=== PATIENT | male | born 1955 | race Two or more races ===

== ENCOUNTER 2023-10-05 13:29 | Outpatient (AMB) | payer OTHER, SELFPAY ==
[2023-10-05 14:22] VITALS: BP 140/84; PULSE 83; RESP 13; O2SAT 97; BMI 32.0
--- NOTE | 2023-10-05 14:22 | MHC.PC.OV ---
Vital Signs 10/05/23 14:22 Height 5 ft 9 in Weight 217 lb BMI 32.0 BP 140/84 H Blood Pressure Location Rt brachial Position Sitting Respiration 13 Pulse 83 Pulse Source Pulse Oximeter Pulse Oximetry (%) 97 Oxygen Delivery Method Room Air Intake Visit Reasons: Establish Care not a transfer Intake Note: Patient is here to establish care, he states he had shingles and since having shingles his voice is gone acompanied by a dry persistent cough. Patient reports he has tingling down the left arm with no other symptoms. 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 Required: No Accompanied by: Self / Same As Patient Allergies No Known Allergies [No Known Allergies*] Allergy (Verified 10/05/23 14:28) Medication List - Last Reconciled 10/05/23 by Winsome Castaneda MD No Known Home Meds Tobacco use date assessed: 10/05/23 Fall risk assessment: No Falls in past year Last assessed Fall Risk: 10/05/23 Dental Screening Dental Screen Date: 10/05/23 Did you have a dental visit in the last 12 months?: No Did you have a dental problem in the last 6 months where you did not have access to dental care?: No Was dental information given to patient?: Patient declined HPI HPI Comments History of Present Illness Details 68 year old male with a past medical history of elevated blood pressure, GERD presenting to establish care Reports had shingles left neck, shoulder. Reports persistent tingly discomfort of the left arm. reports ever since he had shingles his voice has been hoarse. He denies dysphagia, odynophagia. History of tobacco use. Borderline blood pressure. Denies headaches, chest apin. Colonoscopy 2017-5 years due ROS see HPI PHYSICAL EXAM: GENERAL: Alert and oriented x 3. NAD EYES: EOMI. Anicteric. HENT: Moist mucous membranes. No scleral icterus. No cervical lymphadenopathy. LUNGS: Clear to auscultation bilaterally. CARDIOVASCULAR: Regular rate and rhythm. No murmur. No JVD. ABDOMEN: Soft, non-tender +bs EXTREMITIES: No edema. Non-tender. SKIN: No rashes or lesions. Warm. NEUROLOGIC: No focal neurological deficits. CN II-XII grossly intact PSYCHIATRIC: Cooperative. 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 1. Little interest or pleasure in doing things: not at all 2. Feeling down, depressed, or hopeless: not at all 3. Trouble falling or staying asleep, or sleeping too much: not at all 4. Feeling tired or having little energy: not at all 5. Poor appetite or overeating: not at all 6. Feeling bad about yourself - or that you are a failure or have let yourself or your family down: not at all 7. Trouble concentrating on things, such as reading the newspaper or watching television: not at all 8. Moving or speaking so slowly that other people could have noticed. Or the opposite - being so fidgety or restless that you have been moving around a lot more than usual: not at all 9. Thoughts that you would be better off or of hurting yourself in some way: not at all Total score: 0 Depression Screening Interpretation: Negative (Neg) Depression Screening Done: Yes 03266 - PHQ-9 Billing: Yes Source: Developed by Drs. Everardo Soliman, Brooke Kohler, Gil Armando and colleagues, with an educational geo from [employer]. Thrive Questionnaire Date Thrive assessed: 10/05/23 I am a: Patient What is your living situation today?: I have a steady place to live Within the past 12 months, did the food you bought not last and you didn't have the money to get more?: Never true Within the past 12 months, did you worry whether your food would run out before you got money to buy more?: Never true Do you have trouble paying for medicines?: No Do you have trouble getting transportation to medical appointments?: No Do you have trouble paying your heating and electricity bill?: No Do you have trouble taking care of your child, family member or friend?: No Do you have trouble with day-to-day activities such as bathing, preparing meals, shopping, managing finances, etc.?: No Are you currently unemployed and looking for a job?: No Are you interested in more education?: No Please select the resources that you would like help with: None Currently or been in a relationship where the following occur: No concerns reported THRIVE Score: 0 AUDIT C Alcohol Use Questionnaire (AUDIT-C) 1. How often do you have a drink containing alcohol?: Monthly or less 2. How many drinks containing alcohol do you have on a typical day when you are drinking?: 1 or 2 3. How often do you have six or more drinks on one occasion?: Never Total Score: 1 JULIAN-7 AMB Questionnaire JULIAN-7 Date JULIAN - 7 assessed: 10/05/23 Feeling nervous, anxious, or on edge: 0 = Not at all Not being able to stop or control worryin = Not at all Worrying too much about different things: 0 = Not at all Trouble relaxin = Not at all Being so restless that it is hard to sit still: 0 = Not at all Becoming easily annoyed or irritable: 0 = Not at all Feeling afraid as if something awful might happen: 0 = Not at all Total JULIAN-7 score (0-4 normal; 5-9 mild; 10-14 moderate; 15-21 severe): 0 Source: Developed by Drs. Everardo Soliman, Brooke Kohler, Gil Armando and colleagues, with an educational geo from [employer]. JULIAN-7 Assessment Billing JULIAN-7 Assessment Tool: JULIAN-7 Assessment 84637 Physical exam (Primary Care) Vital Signs: Last Vital Signs Pulse 83 10/05/23 14:22 Resp 13 10/05/23 14:22 BP 140/84 H 10/05/23 14:22 Pulse Ox 97 10/05/23 14:22 Oxygen Delivery Method Room Air 10/05/23 14:22 BMI result Body Mass Index 32.0 Tobacco/Smoking Status: Tobacco use Status Tobacco use date assessed 10/05/23 10/05/23 14:33 Patient Tobacco Use Status Never used Tobacco 10/05/23 14:33 e-Cigarette/Vaping Use Never Used 10/05/23 14:33 PHQ-9: PHQ-9 Score PHQ-9: Total score 0 10/11/23 11:00 Depression Screening Interpretation: Negative (Neg) Thrive Assessment: Date of Thrive Assessment Date Thrive assessed 10/05/23 10/05/23 14:33 Currently or been in a relationship where the following occur: No concerns reported Assessment and Plan Assessment & Plan (1) Hoarseness of voice: Code(s): R49.0 - Dysphonia Plan: referral to ENT for evaluation (2) Heartburn: Code(s): R12 - Heartburn Plan: Take OTC as needed (3) Neuropathy of left upper extremity: Code(s): G56.92 - Unspecified mononeuropathy of left upper limb Plan: More numbness, tingling than afshin pain. declines gabapentin (4) Elevated blood pressure reading: Code(s): R03.0 - Elevated blood-pressure reading, without diagnosis of hypertension Plan: increase physical activity, decrease salt. Monitor at home Orders: Orders Lipid Panel 10/05/23 R03.0 - Elevated blood-pressure reading, without diagnosis of hypertension, R12 - Heartburn, Z12.5 - Encounter for screening for malignant neoplasm of prostate, Z13.220 - Encounter for screening for lipoid disorders Complete Blood Count Auto Diff 10/05/23 R03.0 - Elevated blood-pressure reading, without diagnosis of hypertension, R12 - Heartburn, Z12.5 - Encounter for screening for malignant neoplasm of prostate, Z13.220 - Encounter for screening for lipoid disorders Comprehensive Met. Panel 10/05/23 R03.0 - Elevated blood-pressure reading, without diagnosis of hypertension, R12 - Heartburn, Z12.5 - Encounter for screening for malignant neoplasm of prostate, Z13.220 - Encounter for screening for lipoid disorders Prostate Specific Antigen 10/05/23 R03.0 - Elevated blood-pressure reading, without diagnosis of hypertension, R12 - Heartburn, Z12.5 - Encounter for screening for malignant neoplasm of prostate, Z13.220 - Encounter for screening for lipoid disorders Referrals Ear/Nose/Throat Referral G56.92 - Unspecified mononeuropathy of left upper limb, R12 - Heartburn, R49.0 - Dysphonia, R49.9 - Unspecified voice and resonance disorder Coding Level of Care Code New Pt Level 4 (47036) Diagnoses Hoarseness of voice R49.0 Heartburn R12 Neuropathy of left upper extremity G56.92 Elevated blood pressure reading R03.0 Additional Codes JULIAN-7 Assessment Billing - JULIAN-7 Assessment Tool: JULIAN-7 Assessment [id number] ([id number])
== END 2023-10-05 15:02 | disposition home or self-care (01) ==
PROVIDERS: Visit Provider Internal Medicine
DX: R49.0 Dysphonia (principal); R12 Heartburn; G56.92 Unspecified mononeuropathy of left upper limb; R03.0 Elevated blood-pressure reading, without diagnosis of hypertension
CPT/HCPCS: 99204

== ENCOUNTER 2024-01-08 10:28 | Outpatient (AMB) | payer OTHER, SELFPAY ==
--- NOTE | 2024-01-08 10:35 | MHC.PC.OV ---
Vital Signs 01/08/24 10:41 Height 5 ft 9 in Weight 218 lb 6 oz BMI 32.2 BP 138/88 Blood Pressure Location Rt brachial Position Sitting Pulse 89 Pulse Source Pulse Oximeter Pulse Oximetry (%) 98 Oxygen Delivery Method Room Air Intake Visit Reasons: annual Intake Note: Physical. 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 Reports persistent tingly discomfort of the left arm. He does reports frequent posterior neck pain. The arm feels limp and weak intermittently Reports ever since he had shingles his voice has been hoarse. He denies dysphagia, odynophagia. History of tobacco use. He was referred to ENT. He has not gotten an appointment scheduled yet Reports ED. sometimes nocturia. Would like to trial viagra and see urology Borderline blood pressure. Denies headaches, chest apin. Colonoscopy 2017-5 years due. Order placed ROS see HPI PHYSICAL EXAM: GENERAL: Alert and oriented x 3. NAD EYES: EOMI. Anicteric. HENT: Moist mucous membranes. No scleral icterus. No cervical lymphadenopathy. LUNGS: Clear to auscultation bilaterally. CARDIOVASCULAR: Regular rate and rhythm. No murmur. No JVD. : Normal penis. No appreciable testicular masses ABDOMEN: Soft, non-tender +bs EXTREMITIES: No edema. Non-tender. SKIN: No rashes or lesions. Warm. NEUROLOGIC: No focal neurological deficits. CN II-XII grossly intact PSYCHIATRIC: Cooperative. 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 Everardo Soliman, Brooke Kohler, Gil Armando and colleagues, with an educational geo from [employer] Physical exam (Primary Care) Vital Signs: Last Vital Signs Pulse 89 01/08/24 10:41 BP 138/88 01/08/24 10:41 Pulse Ox 98 01/08/24 10:41 Oxygen Delivery Method Room Air 01/08/24 10:41 BMI result Body Mass Index 32.2 Tobacco/Smoking Status: Tobacco use Status Tobacco use date assessed 10/05/23 01/08/24 10:36 Patient Tobacco Use Status Never used Tobacco 01/08/24 10:36 e-Cigarette/Vaping Use Never Used 01/08/24 10:36 Thrive Assessment: Date of Thrive Assessment Date Thrive assessed 10/05/23 01/08/24 10:36 Coding Level of Care Code Est Pt Prev Care >65y(68038) Diagnoses Physical exam Z00.00 Hoarseness of voice R49.0 Neuropathy of left upper extremity G56.92 Erectile dysfunction, unspecified erectile dysfunction type N52.9 Erectile dysfunction type: unspecified Assessment & Plan Assessment & Plan (1) Physical exam: Code(s): Z00.00 - Encounter for general adult medical examination without abnormal findings Category: Medical Plan: Preventive measures for age and sex discussed. colonoscopy ordered. (2) Hoarseness of voice: Code(s): R49.0 - Dysphonia Category: Medical Plan: Given number to call ENT (3) Neuropathy of left upper extremity: Code(s): G56.92 - Unspecified mononeuropathy of left upper limb Category: Medical Plan: xray ordered. will likely refer to spine (4) Erectile dysfunction: Code(s): N52.9 - Male erectile dysfunction, unspecified Category: Medical Qualifiers: Erectile dysfunction type: unspecified Qualified Code(s): N52.9 - Male erectile dysfunction, unspecified Plan: referral to urology placed Viagra sent Orders: Orders XR cervical spine 4V Today G56.92 - Unspecified mononeuropathy of left upper limb Referrals Urology Referral N52.9 - Male erectile dysfunction, unspecified Open Access Screening Colonoscopy Referral Z12.11 - Encounter for screening for malignant neoplasm of colon, Z12.12 - Encounter for screening for malignant neoplasm of rectum Medications: New gabapentin 300 mg PO BID 180 caps 3RF sildenafil administer 30 minutes to 4 hours before activity 100 mg PO DAILY PRN 30 tabs 3RF sexual activity
[2024-01-08 10:41] VITALS: BP 138/88; PULSE 89; O2SAT 98; BMI 32.2
== END 2024-01-08 11:42 | disposition home or self-care (01) ==
PROVIDERS: Visit Provider Internal Medicine
DX: Z00.00 Encounter for general adult medical examination without abnormal findings (principal); R49.0 Dysphonia; G56.92 Unspecified mononeuropathy of left upper limb; N52.9 Male erectile dysfunction, unspecified

== ENCOUNTER 2024-01-08 10:28 | Outpatient (REF) | payer OTHER, SELFPAY ==
--- NOTE | ~2024-01-08 | XR_ITS ---
EXAMINATION: XR CERVICAL SPINE 7 VIEWS CLINICAL INFORMATION: Unspecified mononeuropathy of left upper limb G56.92. COMPARISON: None available. TECHNIQUE: 7 views of the cervical spine, inclusive of flexion and extension views, were obtained. FINDINGS: Straightening of the normal cervical lordosis, which may be positional or related to muscular spasm. No acute fracture or subluxation. Normal atlantoaxial alignment. No loss of vertebral body height. Prominent loss of intervertebral disc height with anterior endplate osteophytes at C3-C4 and C4-C5. More moderate generative disc disease at C5-C7. Multilevel bilateral facet arthropathy. Multilevel bilateral neural foraminal stenosis. No concerning lytic or blastic osseous lesion. Unremarkable prevertebral soft tissues. XR/XR cervical spine 4V IMPRESSION: 1. Straightening of the normal cervical lordosis, which may be positional or related to muscular spasm. 2. Prominent degenerative disc disease at C3-C4 and C4-C5. More moderate degenerative disc disease at C5-C7. Multilevel bilateral facet arthropathy. Multilevel bilateral neural foraminal stenosis. Electronically signed by: Hilario Dawson MD 03/02/2024 01:02 PM OJ
== END 2024-01-08 10:29 | disposition home or self-care (01) ==
LOC: HO.XRAY 10:28
PROVIDERS: PCP Internal Medicine; Visit Provider Internal Medicine
DX: G56.92 Unspecified mononeuropathy of left upper limb (principal); R49.0 Dysphonia; N52.9 Male erectile dysfunction, unspecified; Z00.00 Encounter for general adult medical examination without abnormal findings
CPT/HCPCS: 72050

== ENCOUNTER 2025-01-10 10:13 | Outpatient (AMB) | payer OTHER, SELFPAY ==
--- NOTE | 2025-01-10 10:17 | A.OFFPC_ITS ---
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 Reports persistent tingly discomfort of the left arm. He does reports frequent posterior neck pain. The arm feels limp and weak intermittently Reports ever since he had shingles his voice has been hoarse. He denies dysphagia, odynophagia. History of tobacco use. He was referred to ENT. He has not gotten an appointment scheduled yet Reports ED. sometimes nocturia. Would like to trial viagra and see urology Borderline blood pressure. Denies headaches, chest apin. Colonoscopy 2017-5 years due. Order placed ROS see HPI PHYSICAL EXAM: GENERAL: Alert and oriented x 3. NAD EYES: EOMI. Anicteric. HENT: Moist mucous membranes. No scleral icterus. No cervical lymphadenopathy. LUNGS: Clear to auscultation bilaterally. CARDIOVASCULAR: Regular rate and rhythm. No murmur. No JVD. : Normal penis. No appreciable testicular masses ABDOMEN: Soft, non-tender +bs EXTREMITIES: No edema. Non-tender. SKIN: No rashes or lesions. Warm. NEUROLOGIC: No focal neurological deficits. CN II-XII grossly intact PSYCHIATRIC: Cooperative. Appropriate mood and affect [facility] Medical History Shingles Surgical History No pertinent past surgical history Family History Maternal Grandmother Stomach cancer Sister Breast cancer Social History (Updated 01/10/25 @ 10:21 by Perez Esparza MA) Household Members: Family Housing: House 75 years or older and lives alone: No Alcohol intake: current Alcohol intake frequency: holidays/special occasions only Alcohol type: beer Patient Tobacco Use Status: Never used Tobacco e-Cigarette/Vaping Use: Never Used Use of substances other than those prescribed or required for medical reasons: No service: No Current occupational status: employed 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 1. Little interest or pleasure in doing things: not at all 2. Feeling down, depressed, or hopeless: not at all 3. Trouble falling or staying asleep, or sleeping too much: nearly every day 4. Feeling tired or having little energy: several days 5. Poor appetite or overeating: not at all 6. Feeling bad about yourself - or that you are a failure or have let yourself or your family down: not at all 7. Trouble concentrating on things, such as reading the newspaper or watching television: not at all 8. Moving or speaking so slowly that other people could have noticed. Or the opposite - being so fidgety or restless that you have been moving around a lot more than usual: not at all 9. Thoughts that you would be better off or of hurting yourself in some way: not at all Total score: 4 Depression Screening Interpretation: Positive Depression Screening Done: Yes 30514 - PHQ-9 Billing: Yes Source: Developed by Drs. Everardo Soliman, Brooke Kohler, Gil Armando and colleagues, with an educational geo from [employer]. Thrive Questionnaire Date Thrive assessed: 10/05/23 I am a: Patient What is your living situation today?: I have a steady place to live Within the past 12 months, did the food you bought not last and you didn't have the money to get more?: Never true Within the past 12 months, did you worry whether your food would run out before you got money to buy more?: Never true Do you have trouble paying for medicines?: Yes Do you have trouble getting transportation to medical appointments?: No Do you have trouble paying your heating and electricity bill?: Yes Do you have trouble taking care of your child, family member or friend?: No Do you have trouble with day-to-day activities such as bathing, preparing meals, shopping, managing finances, etc.?: No Are you currently unemployed and looking for a job?: No Are you interested in more education?: Yes Please select the resources that you would like help with: Education Currently or been in a relationship where the following occur: No concerns reported THRIVE Score: 1 AUDIT C Alcohol Use Questionnaire (AUDIT-C) 1. How often do you have a drink containing alcohol?: 2-4 times a month 2. How many drinks containing alcohol do you have on a typical day when you are drinking?: 1 or 2 3. How often do you have six or more drinks on one occasion?: Never Total Score: 2 JULIAN-7 AMB Questionnaire JULIAN-7 Date JULIAN - 7 assessed: 01/10/25 Feeling nervous, anxious, or on edge: 0 = Not at all Not being able to stop or control worryin = Not at all Worrying too much about different things: 0 = Not at all Trouble relaxin = Not at all Being so restless that it is hard to sit still: 0 = Not at all Becoming easily annoyed or irritable: 0 = Not at all Feeling afraid as if something awful might happen: 0 = Not at all Total JULIAN-7 score (0-4 normal; 5-9 mild; 10-14 moderate; 15-21 severe): 0 Source: Developed by Drs. Everardo Soliman, Brooke Kohler, Gil Armando and colleagues, with an educational geo from [employer]. JULIAN-7 Assessment Billing JULIAN-7 Assessment Tool: JULIAN-7 Assessment 62253 Physical exam (Primary Care) Vital Signs: Last Vital Signs Temp 98 F 01/10/25 10:22 Pulse 94 01/10/25 10:22 Resp 18 01/10/25 10:22 BP 128/84 01/10/25 10:25 Pulse Ox 96 01/10/25 10:22 Oxygen Delivery Method Room Air 01/10/25 10:22 Tobacco/Smoking Status: Tobacco use Status Tobacco use date assessed 01/10/25 01/10/25 10:26 Patient Tobacco Use Status Never used Tobacco 01/10/25 10:21 e-Cigarette/Vaping Use Never Used 01/10/25 10:21 PHQ-9: PHQ-9 Score PHQ-9: Total score 4 01/10/25 10:35 Depression Screening Interpretation: Positive Thrive Assessment: Date of Thrive Assessment Date Thrive assessed 10/05/23 01/10/25 10:18 Currently or been in a relationship where the following occur: No concerns reported Office Procedures Flu Questionnaire Does the patient have a severe egg allergy?: No Does the patient have severe life threatening allergies?: No Does the patient have a fever or illness today?: No Has the patient ever had Guillain-[place] Syndrome?: No Has the patient ever had any past reaction to a flu shot?: No Immunizations Fluarix [id number] (PF) 45 mcg (15 mcg x 3)/0.5 mL IM syringe Performing Provider: Winsome Castaneda MD Performing Location: [facility] [place] Administered by: Prisca Gomez CMA on 01/10/25 10:54 Dose Route Admin Location Dispensed Lot Number Expiration Date [place] Production Control Coordinating Clerk 0.5 mL IM Right Deltoid 0.5 mL [id number] 09/19/25 66319-045-41 [employer] VIS Given Date VIS Provided VIS Publication Date 01/10/25 Single Vaccine 24 Eligibility Eligibility Date Funding Source Not VFC Eligible 01/10/25 Private Boostrix Tdap 2.5 Lf unit-8 mcg-5 Lf/0.5 mL intramuscular syringe Performing Provider: Winsome Castaneda MD Performing Location: [facility] Medicine Administered by: Prisca Gomez CMA on 01/10/25 10:54 Dose Route Admin Location Dispensed Lot Number Expiration Date [facility] Production Control Coordinating Clerk 0.5 mL IM Left Deltoid 0.5 mL [id number] 02/17/27 [id number] [employer] Total Dispensed Waste 0.5 mL 0 % VIS Given Date VIS Provided VIS Publication Date 01/10/25 Single Vaccine 20 Eligibility Eligibility Date Funding Source Not VFC Eligible 01/10/25 Private Coding Additional Codes JULIAN-7 Assessment Billing - JULIAN-7 Assessment Tool: JULIAN-7 Assessment 78175 ([id number]) PHQ-9 - 16043 - PHQ-9 Billing: Yes ([id number]) Assessment & Plan Assessment & Plan Orders: Orders TDaP Immunization Today Z23 - Encounter for immunization Influenza [id number] Immunization Today Z23 - Encounter for immunization Referrals Gastroenterology Referral Z12.11 - Encounter for screening for malignant neoplasm of colon General Surgery Referral K64.9 - Unspecified hemorrhoids Ear/Nose/Throat Referral R49.0 - Dysphonia
[2025-01-10 10:22] VITALS: BP 130/92; PULSE 94; RESP 18; TEMP 36.6; O2SAT 96
[2025-01-10 10:25] VITALS: BP 128/84
== END 2025-01-10 11:01 | disposition home or self-care (01) ==
PROVIDERS: PCP Internal Medicine; Visit Provider Internal Medicine
DX: Z23 Encounter for immunization (principal)

== ENCOUNTER → 2025-01-10 10:13 | Outpatient (BNVA) | payer OTHER, SELFPAY | PROVIDERS: Visit Provider Internal Medicine | DX: R49.0 Dysphonia (principal); Z23 Encounter for immunization; K64.9 Unspecified hemorrhoids; Z13.31 Encounter for screening for depression; Z13.39 Encounter for screening examination for other mental health and behavioral disorders | CPT/HCPCS: 90471; 90472; 90656; 90715; 96127 ==

== ENCOUNTER 2025-02-21 10:40 | Outpatient (REF) | payer OTHER, SELFPAY ==
--- NOTE | ~2025-02-21 | CT_ITS ---
EXAMINATION: CT SOFT TISSUE NECK WITH CONTRAST CLINICAL INFORMATION: R13.10. Dysphagia, unspecified. COMPARISON: None available. TECHNIQUE: Following the intravenous administration of 60 mL of Omnipaque 350 intravenous contrast, helical imaging was performed in the axial plane with generation of coronal and sagittal reformatted images. This CT examination was performed using dose optimization techniques as appropriate, variously including the following: *Automated exposure control *Adjustment of mA and/or kV according to patient size (this includes techniques or standardized protocols for targeted exams where dose is matched to indication/reason for exam; i.e. extremities or head) *Use of iterative reconstruction technique DLP: 432 mGy-cm FINDINGS: Limited by patient's motion artifact, being hardening artifact from dental work and poor IV contrast enhancement. There is soft tissue fullness in the nasopharynx abutting the soft palate resulting in narrowing/absent upper airway. Oropharynx, retropharynx, hypopharynx and larynx demonstrated no gross masses or fluid collections. There is a gas-filled structure in the right paraglottic compartment. Managing Cognitive Engineer spaces, parapharyngeal and carotid compartments demonstrated no gross masses or fluid collections. Salivary glands demonstrated no sialolithiasis or gross masses. The vessels are patent. Calcified plaques in the right carotid bulb and proximal right ICA. Retropharyngeal trajectory of the right ICA. The thyroid gland is not enlarged. No gross dominant nodules. Nonspecific prominent cervical lymph nodes. The thoracic aortic arch is normal. No acute airspace disease in the upper lung lobes. Multilevel cervical spondylosis C3 C7 pronounced at C3-4, C4-5 and to a lesser extent C5-6 resulting in kyphotic deformity apex at C3-4. There is poor dentition with a periapical hypodensity in the right middle incisive, maxilla. CT/CT soft tissue neck w IV con IMPRESSION: Soft tissue fullness, nasopharynx obstructing upper airway. Recommend direct inspection. Laryngocele, right paraglottic. Multilevel cervical spondylosis C3 C7. Probable periapical abscess, right middle maxillary incisive Electronically signed by: Gordon Burton MD 02/21/2025 11:50 AM [facility] [place]
[2025-02-21] MEDS: iohexoL 350 MG/ML 100 ML INFUS..BTL IV (11:18)
--- OUTSIDE RECORDS SUMMARY | 2025-02-21 12:27 | XMS_ITS | Clinical Summary ---
Author Organization [facility] Address [address] [place] [id number] Care Team Providers Care Frontload Driver Name Role Phone Unavailable Primary Care Provider Unavailabl e Encounters Date Type Department Care Team Description 01/27/2025 8:00 AM EST Office Visit [facility] [address] [phone] Fer Terry MD Dysphonia (Primary Dx); Unilateral partial vocal fold paralysis; Larynx neoplasm malignant (HCC) from Last 3 Months Social History Tobacco Use Types Packs/Day Years Used Date Smoking Tobacco: Never Assessed Sex and Gender Information Value Date Recorded Sex Assigned at Male 01/23/2025 1:57 PM EST Legal Sex Male 10:09 AM EDT Gender Identity Male 01/23/2025 1:57 PM EST Sexual Orientation Heterosexual (straight) 01/23 1:57 PM EST Plan of Treatment Health Maintenance Due Date Last Done Comments Advance Care Planning 1955 Hepatitis C Virus Screening 1955 DTaP/Tdap/Td Vaccines (1 - Tdap) 1973 Pneumococcal Vaccines 50+ (1 of 2 - PCV) 1973 Zoster (Shingles) Vaccine (1 of 2) 1973 Colonoscopy 09/09/1999 COVID-19 Vaccine (3 - Modern a risk series) 08/22/2021 07/25/2021, 04/28/2021, 03/31/2021 Influenza Vaccine 10/21/2024 RSV Vaccine 50 years and older and Patients (1 - 1-dose 75+ series) 2029 Hepatitis B Vaccines Aged Out No long er eligible based on patient's age to complete this topic Procedures Procedure Name Priority Date/Time Associated Diagnosis Comments AMB REFERRAL TO ENT Routine 01/16/2025 1:12 PM EDT from Last 3 Months Results * Amb Referral to ENT (01/16/2025 1:12 PM EDT) us External Provider OUTPATIENT REFERRAL ORDERAB LES Final Result from Last 3 Months Insurance DIVERS[employer]IED GROUP
--- OUTSIDE RECORDS SUMMARY | 2025-02-21 12:27 | XMS_ITS ---
Author Name [facility] Organization Unknown Problems Problem Status Onset Date Problem Type Date of Resoluti on Source Dysphonia active EncounterDiagnosisAct HHCCT Larynx neoplasm malignant (HCC) active EncounterDiagnosisAct C CT Unilateral partial vocal fold paralysis active EncounterDiagnosisAct [facility]CT Encounters Encounter Type Encounter Reason Primary Diagnosis Location Date Ambulatory Dysphonia Dysphonia [facility] 01/27/2025 Care Team Organization Name Specialty Phone Email Start Date End [facility] 01/27/2025 [facility] 01/20/2025
[2025-02-21 12:33] LABS: Creatinine POC 1.1 mg/dL (0.5-1.4); GFR POC > 60
== END 2025-02-21 10:41 | disposition home or self-care (01) ==
LOC: HO.CT 10:40
PROVIDERS: Visit Provider Internal Medicine
DX: R49.0 Dysphonia (principal); R13.10 Dysphagia, unspecified; J38.01 Paralysis of vocal cords and larynx, unilateral; C32.9 Malignant neoplasm of larynx, unspecified
CPT/HCPCS: 70491; 82565; Q9967

== ENCOUNTER → 2025-02-21 10:46 | Outpatient (BNV) | payer OTHER, SELFPAY | PROVIDERS: Visit Provider Radiology Diagnostic Radiology | DX: M47.812 Spondylosis without myelopathy or radiculopathy, cervical region (principal) | CPT/HCPCS: 70491 ==

== ENCOUNTER 2025-03-06 09:51 | Outpatient (AMB) | payer OTHER, SELFPAY ==
--- NOTE | 2025-03-06 10:02 | A.OFFVIS_ITS ---
Vital Signs 03/06/25 10:14 Height 5 ft 9 in Weight 226 lb BMI 33.4 Intake Visit Reasons: hemorrhoids Intake Note: Patient presents for an assessment for hemorrhoids. Pt c/o: pt was referred to [facility] for colonoscopy, never had colonoscopy before, reports bright red blood per rectum, reports Hx constipation and straining with bowel movements. Clothing Manager Required: No Accompanied by: Self / Same As Patient Allergies No Known Allergies (No Known Allergies*) Allergy (Verified 03/06/25 10:15) Medication List - Last Reconciled 03/06/25 by Vidal Broussard MD No Known Home Meds HPI HPI hemorrhoids: Details: 69-year-old male referred for hemorrhoid issues. He says that he has had hemorrhoids for many years. He describes occasional pain with bowel movements. He also see the sit he once in a while would notice small amounts of bright blood on wiping. He describes being chronically constipated Denies other medical problems. He does have this significant hoarseness for about over a year now. He admits to being an ex-smoker and smoked for more than 20 years. 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- [employer] Cognitive needs: No Hearing needs: No Vision needs: No Review of Systems Const Denies chills and Denies fever(s) Eyes Denies requires corrective lenses ENT Details: Hoarseness Card Denies chest pain, Denies dyspnea and Denies dyspnea on exertion Resp Denies cough, Denies dyspnea and Denies dyspnea on exertion GI Reports hematochezia, Denies change in bowel habits and Reports constipation Denies hematuria and Denies difficulty urinating Musc Denies back pain and Denies limited range of motion Neuro Denies focal weakness and Denies convulsions Psych Denies depression and Denies mood swings Physical Exam Const General: comfortable and no acute distress Orientation/consciousness: patient oriented x3 Neck Neck: Yes no lymphadenopathy Resp Auscultation: clear to auscultation bilaterally Cardio Rhythm: regular rhythm GI Other: Rectal exam shows external hemorrhoids Palpation (GI): Soft to palpation, nontender and no guarding Neuro General: patient oriented x3 Office Procedures Anoscopy He was in kneeling cintia-knife position. The anoscope was gently inserted. A full examination of the entire anal canal was done. He did have a large internal and external hemorrhoidal column on the left posterior area. There were no other lesions seen there was no bleeding or ulceration. There was no fissure. There was no induration on digital exam. [id number] Assessment & Plan Assessment & Plan (1) Bleeding hemorrhoids: Code(s): K64.9 - Unspecified hemorrhoids Category: Medical Plan: He has this large internal and external hemorrhoidal column with periodic bleeding. He describes this has small amounts of bright blood on wiping. I did explain to him the option of proceeding with hemorrhoidectomy. I explained to him the technique of exam under anesthesia and hemorrhoidectomy. I reviewed the risks including but not limited to bleeding, and infections. I explained to him what to expect postoperatively He says that he does not feel that he has hemorrhoid symptoms are severe and he would like to hold off on any surgical intervention for now. He also says that he has never had any colonoscopy in the past. I explained to him the may be good to have this done at this point in his life. He is going to think about it he says. He otherwise was instructed to see me in the office on a p.r.n. basis I was send him a prescription for Colace. I advised him the importance of high- fiber diet. Coding Level of Care Code New Pt Level 3 (80161) Diagnoses Bleeding hemorrhoids K64.9 CPT Codes Details - CPT: 26641-Gmsxeoam ([id number])
[2025-03-06 10:14] VITALS: BMI 33.4
== END 2025-03-06 10:32 | disposition home or self-care (01) ==
LOC: HO.HGS 09:52
PROVIDERS: PCP Internal Medicine; Visit Provider Surgery
DX: K64.9 Unspecified hemorrhoids (principal)
CPT/HCPCS: 46600; 99203

== ENCOUNTER → 2025-03-06 09:51 | Outpatient (BNVA) | payer OTHER, SELFPAY | PROVIDERS: PCP Internal Medicine; Visit Provider Surgery | DX: K64.4 Residual hemorrhoidal skin tags (principal); K64.8 Other hemorrhoids | CPT/HCPCS: 46600 ==